=== PATIENT | female | born 1995 | race Caucasian/White ===

== ENCOUNTER 2017-03-17 12:45 | Emergency (ER) | payer OTHER ==
[~2017-03-17] VITALS: Ht 170.2 cm; Wt 84.8 kg
[2017-03-17] MEDS ORDERED: fentaNYL PF VIAL 100 MCG/2 ML VIAL IV ONE (14:15)
[2017-03-17] MEDS ORDERED: IV NORMAL SALINE 1000ML BAG 1,000 ML IV ONE (14:15)
[2017-03-17 14:38] LABS: BASO % 0 % (0-3); EOS % 0 % (0-3); HEMATOCRIT 38.7 % (36.0-47.0); HEMOGLOBIN 12.7 g/dL (12.0-15.5); LYMPH # 0.9 x10^3/uL (1.0-4.8); LYMPH % 7 % (24-48); MEAN CORPUSCULAR HEMOGLOBIN 27 pg (25-35); MEAN CORPUSCULAR HGB CONC 33 g/dL (31-37); MEAN CORPUSCULAR VOLUME 83 fL (79-100); MONO % 3 % (0-9); NEUT % 89 % (31-73); PLATELET COUNT 191 x10^3/uL (140-400); RED BLOOD COUNT 4.65 x10^6/uL (3.50-5.40); RED CELL DISTRIBUTION WIDTH 13.1 % (11.5-14.5)
[2017-03-17 14:41] LABS: BILIRUBIN,URINE NEGATIVE (NEG); GLUCOSE,URINE NEGATIVE (NEG); NITRITE,URINE NEGATIVE (NEG); PH,URINE 6.5; PROTEIN,URINE NEGATIVE (NEG-TRACE); UROBILINOGEN,URINE 0.2 mg/dL (0.2 mg/dL)
[2017-03-17 14:49] LABS: BARBITURATES NEG (NEG); BENZODIAZEPINES NEG (NEG); CANNABINOIDS POS (NEG); COCAINE NEG (NEG); METHADONE NEG (NEG); OPIATES NEG (NEG); PHENCYCLIDINE NEG (NEG)
[2017-03-17 14:57] LABS: BACTERIA,URINE MANY /HPF (0-FEW); CALCIUM 8.7 mg/dL (8.5-10.1); CREATININE 0.7 mg/dL (0.6-1.0); GFR 104.6; POTASSIUM 3.8 mmol/L (3.5-5.1); RBC,URINE 0 /HPF (0-2); SQUAMOUS EPITHELIAL CELL,UR MANY /LPF
[2017-03-17 15:03] LABS: ALBUMIN 3.9 g/dL (3.4-5.0); ALBUMIN/GLOBULIN RATIO 1.1 (1.0-1.7); TOTAL BILIRUBIN 0.7 mg/dL (0.2-1.0); TOTAL PROTEIN 7.5 g/dL (6.4-8.2)
--- NOTE | 2017-03-17 15:04 | RAD ---
Exam performed: CT scan of the abdomen and pelvis without contrast. Clinical Indication: Left flank pain. Date of Service: 03/17/17 comparison: None available Technique: Contiguous helical acquisitions are obtained through the abdomen and pelvis without IV contrast. Sagittal and coronal reformatted images are obtained and reviewed. CT abdomen and pelvis findings: The lung bases are essentially clear. Visualized heart is normal. Lack of IV contrast limits evaluation of abdominal viscera, however the liver, gallbladder, spleen and pancreas are normal. Both adrenal glands and bilateral kidneys are normal in size without hydronephrosis or nephrolithiasis. Aorta is normal in caliber without aneurysm. The small and large bowel loops are nondilated and unremarkable. The visualized portion of the appendix is unremarkable. No inflammatory changes in the right lower quadrant. Distal ureters are nondilated. Urinary bladder is decompressed and thick walled. [Uterus is normal and anteverted. No adnexal masses seen..] No free or focal fluid collections are identified. Impression: No acute intra-abdominal or pelvic process detected. No evidence of urolithiasis. PQRS Compliance Statement: One or more of the following individualized dose reduction techniques were utilized for this examination: 1. Automated exposure control 2. Adjustment of the mA and/or kV according to patient size 3. Use of iterative reconstruction technique
[2017-03-17 15:08] LABS: PLT ESTIMATE ADEQUATE (ADEQUATE)
[2017-03-17] MEDS ORDERED: CIPROFLOXACIN 400MG PREMIX 200 ML IV STA (15:36)
[2017-03-17] MEDS ORDERED: PROM25TA10 PO (15:44)
[2017-03-17] MEDS ORDERED: CIPR500T94 PO (15:44)
[2017-03-17] MEDS ORDERED: TRAM-48 PO (15:44)
--- NOTE | 2017-03-17 15:45 | PHYS DOC ---
Past Medical History Past Medical History: Other Additional Past Medical Histor: GESTATIONAL HTN/DM Past Surgical History: Other Additional Past Surgical Histo: bilateral myringotomy Alcohol Use: Rarely Drug Use: None Adult General Chief Complaint Chief Complaint: FLANK PAIN HPI HPI Patient is a 21 year old female who presents with left flank pain that began 2 weeks ago and has been going on intermittently since then. Patient states the pain got worse last night. She states she developed nausea with no vomiting. Patient states she has history of kidney stones as well as kidney infections. Patient denies any fever. Denies any hematuria urgency frequency dysuria. Review of Systems Review of Systems Constitutional: Denies fever or chills [] Eyes: Denies change in visual acuity, redness, or eye pain [] HENT: Denies nasal congestion or sore throat [] Respiratory: Denies cough or shortness of breath [] Cardiovascular: No additional information not addressed in HPI [] GI: Denies abdominal pain, nausea, vomiting, bloody stools or diarrhea [] : Left flank pain Musculoskeletal: Denies back pain or joint pain [] Integument: Denies rash or skin lesions [] Neurologic: Denies headache, focal weakness or sensory changes [] Endocrine: Denies polyuria or polydipsia [] Current Medications Current Medications Current Medications Medications (Trade) Dose Ordered Sig/Saleem Start Time Stop Time Status Last Admin Dose Admin Fentanyl Citrate (Fentanyl 2ml Vial) 50 mcg 1X ONCE 03/17/17 14:15 03/17/17 14:16 DC 03/17/17 14:42 50 MCG Sodium Chloride 1,000 ml @ 1,000 mls/hr 1X ONCE 03/17/17 14:15 03/17/17 15:14 DC 03/17/17 14:44 1,000 MLS/HR Allergies Allergies Allergies Coded Allergies Type Severity Reaction Last Updated Verified pear Allergy Intermediate 06/03/15 Yes Physical Exam Physical Exam Constitutional: Well developed, well nourished, no acute distress, non-toxic appearance. [] HENT: Normocephalic, atraumatic, bilateral external ears normal, oropharynx moist, no oral exudates, nose normal. [] Eyes: PERRLA, EOMI, conjunctiva normal, no discharge. [] Neck: Normal range of motion, no tenderness, supple, no stridor. [] Cardiovascular:Heart rate regular rhythm, no murmur [] Lungs & Thorax: Bilateral breath sounds clear to auscultation [] Abdomen: Bowel sounds normal, soft, no tenderness, no masses, no pulsatile masses. [] Skin: Warm, dry, no erythema, no rash. [] Back: No tenderness, mild left CVA tenderness. [] Extremities: No tenderness, no cyanosis, no clubbing, ROM intact, no edema. [] Neurologic: Alert and oriented X 3, normal motor function, normal sensory function, no focal deficits noted. [] Psychologic: Affect normal, judgement normal, mood normal. [] Current Patient Data Vital Signs Vital Signs Date Time Temp Pulse Resp B/P (MAP) Pulse Ox O2 Delivery O2 Flow Rate FiO2 03/17/17 14:42 22 98 Room Air 03/17/17 13:40 98.4 76 98.4 Lab Values Laboratory Tests Test 03/17/17 13:37 03/17/17 14:30 POC Urine HCG, Qualitative Hcg negative (Negative) White Blood Count 13.0 x10^3/uL (4.0-11.0) H Red Blood Count 4.65 x10^6/uL (3.50-5.40) Hemoglobin 12.7 g/dL (12.0-15.5) Hematocrit 38.7 % (36.0-47.0) Mean Corpuscular Volume 83 fL (79-100) Mean Corpuscular Hemoglobin 27 pg (25-35) Mean Corpuscular Hemoglobin Concent 33 g/dL (31-37) Red Cell Distribution Width 13.1 % (11.5-14.5) Platelet Count 191 x10^3/uL (140-400) Neutrophils (%) (Auto) 89 % (31-73) H Lymphocytes (%) (Auto) 7 % (24-48) L Monocytes (%) (Auto) 3 % (0-9) Eosinophils (%) (Auto) 0 % (0-3) Basophils (%) (Auto) 0 % (0-3) Neutrophils # (Auto) 11.6 x10^3uL (1.8-7.7) H Lymphocytes # (Auto) 0.9 x10^3/uL (1.0-4.8) L Monocytes # (Auto) 0.4 x10^3/uL (0.0-1.1) Eosinophils # (Auto) 0.0 x10^3/uL (0.0-0.7) Basophils # (Auto) 0.0 x10^3/uL (0.0-0.2) Segmented Neutrophils % 85 % (35-66) H Band Neutrophils % 4 % (0-9) Lymphocytes % 10 % (24-48) L Monocytes % 1 % (0-10) Platelet Estimate Adequate (ADEQUATE) Urine Collection Type Void Urine Color Yellow Urine Clarity Clear Urine pH 6.5 Urine Specific [place] >=1.030 Urine Protein Negative mg/dL (NEG-TRACE) Urine Glucose (UA) Negative mg/dL (NEG) Urine Ketones (Stick) 15 mg/dL (NEG) Urine Blood Negative (NEG) Urine Nitrite Negative (NEG) Urine Bilirubin Negative (NEG) Urine Urobilinogen Dipstick 0.2 mg/dL (0.2 mg/dL) Urine Leukocyte Esterase Large (NEG) Urine RBC 0 /HPF (0-2) Urine WBC 5-10 /HPF (0-4) Urine Squamous Epithelial Cells Many /LPF Urine Bacteria Many /HPF (0-FEW) Urine Mucus Marked /LPF Sodium Level 142 mmol/L (136-145) Potassium Level 3.8 mmol/L (3.5-5.1) Chloride Level 104 mmol/L (98-107) Carbon Dioxide Level 28 mmol/L (21-32) Anion Gap 10 (6-14) Blood Urea Nitrogen 10 mg/dL (7-20) Creatinine 0.7 mg/dL (0.6-1.0) Estimated GFR (Cockcroft-Gault) 104.6 BUN/Creatinine Ratio 14 (6-20) Glucose Level 116 mg/dL (70-99) H Calcium Level 8.7 mg/dL (8.5-10.1) Total Bilirubin 0.7 mg/dL (0.2-1.0) Aspartate Amino Transferase (AST) 12 U/L (15-37) L Alanine Aminotransferase (ALT) 17 U/L (14-59) Alkaline Phosphatase 52 U/L (46-116) Total Protein 7.5 g/dL (6.4-8.2) Albumin 3.9 g/dL (3.4-5.0) Albumin/Globulin Ratio 1.1 (1.0-1.7) Lipase 96 U/L (73-393) Urine Opiates Screen Neg (NEG) Urine Methadone Screen Neg (NEG) Urine Barbiturates Neg (NEG) Urine Phencyclidine Screen Neg (NEG) Urine Amphetamine/Methamphetamine Neg (NEG) Urine Benzodiazepines Screen Neg (NEG) Urine Cocaine Screen Neg (NEG) Urine Cannabinoids Screen Pos (NEG) Ethyl Alcohol Level < 10 mg/dL (0-10) Urine Ethyl Alcohol Neg (NEG) Laboratory Tests 03/17/17 14:30 Laboratory Tests 03/17/17 14:30 EKG EKG [] Radiology/Procedures Radiology/Procedures [] Course & Med Decision Making Course & Med Decision Making Pertinent Labs and Imaging studies reviewed. (See chart for details) Patient is in the ED with left flank pain. Negative urine hCG, urine analysis is positive for infection, CT of the abdomen and pelvic is negative for any acute findings. CBC with a WBC of 13.9 with a left shift, CMP would not acute findings. Patient was given 1 L of IV fluid, she was given Zofran and pain medicine with good relief of her symptoms. She was started on Cipro. She was discharged with Cipro and instructed to follow-up with her own PCP in 1-2 weeks. We also recommended she follows up with the urologist of her own choice. Dragon Disclaimer Dragon Disclaimer This electronic medical record was generated, in whole or in part, using a voice recognition dictation system. Departure Departure Impression: Primary Impression: Pyelonephritis Disposition: 01 HOME, SELF-CARE Condition: STABLE Referrals: KONSTANTIN FONTENOT MD (PCP) Follow up with your primary care doctor and urologist of you want. [facility] does not have a Urologist Patient Instructions: Pyelonephritis, Adult Additional Instructions: You were seen for a kidney infection. Take the prescribed antibiotics as ordered. Come back to the ED at any point symptoms worsen. Follow-up with your doctor and any urologist you choose in the next seven days. [facility] does not have a urologist. Come back to the ED symptoms worsen. Scripts Tramadol Hcl (ULTRAM) 50 Mg Tablet 1 TAB PO Q6HRS, #25 TAB Prov: MUTUNGA,JANAY [employer] 03/17/17 Promethazine Hcl (PROMETHAZINE HCL) 25 Mg Tablet 1 TAB PO PRN Q6HRS, #20 TAB Prov: MUTUNGA,[employer]Y [employer] 03/17/17 Ciprofloxacin Hcl (CIPRO) 500 Mg Tablet 1 TAB PO BID, #14 TAB Prov: JANAY GUZMAN APRN 03/17/17 JANAY GUZMAN APRN Mar 17, 2017 15:44
[2017-03-17 17:00] VITALS: BP 132/80
== END 2017-03-17 17:10 | disposition home or self-care (01) ==
LOC: ER 12:45
DX: N12 Tubulo-interstitial nephritis, not specified as acute or chronic (principal); I10 Essential (primary) hypertension; E11.9 Type 2 diabetes mellitus without complications; Z91.018 Allergy to other foods
CPT/HCPCS: 36415; 74176; 80053; 80307; 81001; 81025; 83690; 85007; 85025; 87086; 96361; 96374; 99285; G0480; J0744; J3010; J7030; G0479

== ENCOUNTER → 2017-09-24 | Outpatient (CLI) | payer OTHER | END | disposition home or self-care (01) | LOC: KCIC US 11:46 | DX: Z34.82 Encounter for supervision of other normal pregnancy, second trimester (principal); Z3A.17 17 weeks gestation of pregnancy | CPT/HCPCS: 76805 ==

== ENCOUNTER → 2017-10-16 | Outpatient (CLI) | payer OTHER | END | disposition home or self-care (01) | LOC: KCIC US 12:12 | DX: O32.1XX0 Maternal care for breech presentation, not applicable or unspecified (principal); Z3A.21 21 weeks gestation of pregnancy | CPT/HCPCS: 76805; 76817 ==

== ENCOUNTER 2018-01-15 12:39 | Observation (INO) | payer OTHER ==
[2018-01-15] MEDS ORDERED: IV RINGERS,LACTATED 1000ML 1,000 ML IV (18:00)
== END 2018-01-15 18:05 | disposition home or self-care (01) ==
LOC: 3 SO LND 12:39
DX: O24.419 Gestational diabetes mellitus in pregnancy, unspecified control (principal); Z3A.33 33 weeks gestation of pregnancy
CPT/HCPCS: 59025; G0378; G0379

== ENCOUNTER 2018-02-04 12:33 | Observation (INO) | payer OTHER | END 2018-02-04 13:45 | disposition home or self-care (01) | LOC: 3 SO LND 12:33 | DX: O24.419 Gestational diabetes mellitus in pregnancy, unspecified control (principal); Z3A.36 36 weeks gestation of pregnancy | CPT/HCPCS: 59025; G0378; G0379 ==

== ENCOUNTER 2018-02-12 10:20 | Observation (INO) | payer OTHER | END 2018-02-12 12:20 | disposition home or self-care (01) | LOC: 3 SO LND 10:20 | DX: O24.419 Gestational diabetes mellitus in pregnancy, unspecified control (principal); Z3A.37 37 weeks gestation of pregnancy | CPT/HCPCS: 59025; G0378; G0379 ==

== ENCOUNTER 2018-02-19 15:06 | Observation (INO) | payer OTHER | END 2018-02-19 16:04 | disposition home or self-care (01) | LOC: 3 SO LND 15:06 | DX: O24.415 Gestational diabetes mellitus in pregnancy, controlled by oral hypoglycemic drugs (principal); Z3A.38 38 weeks gestation of pregnancy | CPT/HCPCS: 59025; G0378; G0379 ==

== ENCOUNTER → 2018-02-19 | Outpatient (CLI) | payer OTHER | END | disposition home or self-care (01) | LOC: US 14:57 | DX: O36.63X0 Maternal care for excessive fetal growth, third trimester, not applicable or unspecified (principal); Z3A.38 38 weeks gestation of pregnancy | CPT/HCPCS: 76819 ==

== ENCOUNTER 2018-02-21 19:14 | Inpatient (IN) | payer OTHER ==
[2018-02-21] MEDS ORDERED: LIDOCAINE 1% PF 30 ML VIAL. INJ (19:15)
[2018-02-21] MEDS ORDERED: OXYTOCIN 30 UNIT/500 ML PREMIX 500 ML IV (19:15)
[2018-02-21] MEDS ORDERED: fentaNYL PF VIAL 100 MCG/2 ML VIAL IV (19:15)
[2018-02-21] MEDS ORDERED: ONDANSETRON PF 4 MG/2 ML VIAL. IV (19:15)
[2018-02-21] MEDS ORDERED: BUTORPHANOL 2 MG/ML VIAL. IV (19:15)
[2018-02-21] MEDS ORDERED: 0.9 % SODIUM CHLORIDE 10 ML DISP.SYRIN. IV (19:15)
[2018-02-21] MEDS ORDERED: ACETAMINOPHEN 325 MG TABLET. PO (19:15)
[2018-02-21] MEDS ORDERED: MAG HYDROX/ALUMINUM HYD/SIMETH 30 ML ORAL.SUSP PO (19:15)
[2018-02-21] MEDS ORDERED: TERBUTALINE 1 MG/ML VIAL. SQ (19:15)
[2018-02-21] MEDS: IV RINGERS,LACTATED 1000ML 1,000 ML IV (19:57)
[2018-02-21 20:03] LABS: ADD MAN DIFF? NO
[2018-02-21 20:06] LABS: BASO % 0 % (0-3); EOS # 0.1 x10^3/uL (0.0-0.7); EOS % 1 % (0-3); HEMATOCRIT 31.1 % (36.0-47.0); HEMOGLOBIN 10.4 g/dL (12.0-15.5); LYMPH % 20 % (24-48); MEAN CORPUSCULAR HEMOGLOBIN 27 pg (25-35); MEAN CORPUSCULAR HGB CONC 34 g/dL (31-37); MEAN CORPUSCULAR VOLUME 79 fL (79-100); MONO # 0.8 x10^3/uL (0.0-1.1); MONO % 8 % (0-9); NEUT # 7.1 x10^3uL (1.8-7.7); NEUT % 71 % (31-73); PLATELET COUNT 185 x10^3/uL (140-400); RED BLOOD COUNT 3.93 x10^6/uL (3.50-5.40); RED CELL DISTRIBUTION WIDTH 16.1 % (11.5-14.5)
[2018-02-21] MEDS: glyBURIDE 1.25 MG TABLET PO (20:08)
[2018-02-21] MEDS: DINOPROSTONE 10 MG SUPP.VAG VG (20:08)
[2018-02-21 20:18] LABS: GLUCOSE 138 mg/dL (70-99)
[2018-02-21] MEDS ORDERED: metFORMIN 500 MG TABLET PO (21:00)
[2018-02-22] MEDS: ZOLPIDEM 5 MG TABLET. PO (03:04)
[2018-02-22] MEDS ORDERED: metFORMIN 500 MG TABLET PO (08:00)
[2018-02-22] MEDS: OXYTOCIN 30 UNIT/500 ML PREMIX 500 ML IV (08:20)
[2018-02-22] MEDS: metFORMIN 500 MG TABLET PO ×3 (08:21→18:36)
[2018-02-22] MEDS: IV RINGERS,LACTATED 1000ML 1,000 ML IV (08:21)
[2018-02-22 08:42] LABS: POC GLUCOSE 100 mg/dL (70-99)
[2018-02-22 12:39] LABS: POC GLUCOSE 89 mg/dL (70-99)
[2018-02-22 16:40] LABS: POC GLUCOSE 78 mg/dL (70-99)
[2018-02-22] MEDS: DINOPROSTONE 10 MG SUPP.VAG VG (20:20)
[2018-02-23] MEDS: BUTORPHANOL 2 MG/ML VIAL. IV (03:54)
[2018-02-23] MEDS: IV RINGERS,LACTATED 1000ML 1,000 ML IV ×3 (03:56→16:50)
[2018-02-23 07:07] LABS: POC GLUCOSE 127 mg/dL (70-99)
[2018-02-23] MEDS: metFORMIN 500 MG TABLET PO ×2 (08:00→17:00)
[2018-02-23] MEDS: OXYTOCIN 30 UNIT/500 ML PREMIX 500 ML IV (08:15)
[2018-02-23] MEDS ORDERED: ROPIVacaine 0.2% IN 0.9%NACL PF 40 MG/20 ML DISP.SYRIN. ×2 (08:23→10:00)
[2018-02-23] MEDS ORDERED: L&D EPIDURAL SYRINGE 50 ML EP ×2 (08:24→11:53)
[2018-02-23] MEDS ORDERED: NALOXONE 0.4 MG/ML VIAL. IV (09:00)
[2018-02-23] MEDS ORDERED: L&D EPIDURAL CASSETTE 100 ML EP (09:00)
[2018-02-23] MEDS: ROPIVacaine 0.2% IN 0.9%NACL PF 40 MG/20 ML DISP.SYRIN. EPI (09:00)
[2018-02-23] MEDS ORDERED: ePHEDrine PF IN SALINE 50 MG/5 ML DISP.SYRIN IV (09:00)
[2018-02-23] MEDS ORDERED: L&D EPIDURAL 50 ML SYRINGE. EP (10:00)
[2018-02-23 12:10] LABS: POC GLUCOSE 84 mg/dL (70-99)
[2018-02-23] MEDS: IBUPROFEN 800 MG TABLET. PO ×2 (15:30→22:49)
[2018-02-23 17:34] LABS: POC GLUCOSE 129 mg/dL (70-99)
[2018-02-24 00:03] LABS: POC GLUCOSE 106 mg/dL (70-99)
[2018-02-24] MEDS: IV RINGERS,LACTATED 1000ML 1,000 ML IV ×2 (00:50→04:16)
[2018-02-24] MEDS: metFORMIN 500 MG TABLET PO (04:16)
[2018-02-24] MEDS: IBUPROFEN 800 MG TABLET. PO ×3 (04:52→20:46)
[2018-02-24 08:04] LABS: POC GLUCOSE 130 mg/dL (70-99)
[2018-02-24] MEDS ORDERED: FERROUS SULFATE 325 MG TABLET. PO (09:00)
[2018-02-24] MEDS: DOCUSATE SODIUM 100 MG CAPSULE. PO (11:36)
[2018-02-24 17:18] LABS: POC GLUCOSE 145 mg/dL (70-99)
[2018-02-24 22:09] LABS: POC GLUCOSE 121 mg/dL (70-99)
[2018-02-25] MEDS: IBUPROFEN 800 MG TABLET. PO ×2 (06:00→11:37)
[2018-02-25 08:25] LABS: POC GLUCOSE 106 mg/dL (70-99)
[2018-02-25] MEDS: DOCUSATE SODIUM 100 MG CAPSULE. PO (11:37)
== END 2018-02-25 14:41 | disposition home or self-care (01) | DRG 774 ==
LOC: 3 SO LND 19:14 → 3 NORTH 02-23 18:00
PROVIDERS: Family Medicine
PROC: 10E0XZZ Delivery of Products of Conception, External Approach (ICD-10-PCS; principal; 2018-02-21)
PROC: 0DQR0ZZ Repair Anal Sphincter, Open Approach (ICD-10-PCS; 2018-02-21)
PROC: 3E0R3BZ Introduction of Anesthetic Agent into Spinal Canal, Percutaneous Approach (ICD-10-PCS; 2018-02-21)
PROC: 00HU33Z Insertion of Infusion Device into Spinal Canal, Percutaneous Approach (ICD-10-PCS; 2018-02-21)
DX: O24.425 Gestational diabetes mellitus in childbirth, controlled by oral hypoglycemic drugs (principal); O10.92 Unspecified pre-existing hypertension complicating childbirth; O70.20 Third degree perineal laceration during delivery, unspecified; Z37.0 Single live birth; Z3A.39 39 weeks gestation of pregnancy
CPT/HCPCS: 36415; 54150; 82947; 82962; 85025; 86592; 86850; 86900; 86901; G0378; J2590; J2795; J7120